=== PATIENT | male | born 1965 | race Hispanic/Latino ===

== ENCOUNTER 2018-01-17 06:54 | Emergency (ER) | payer SELFPAY ==
[~2018-01-17] VITALS: Ht 182.9 cm; Wt 81.8 kg
[2018-01-17 07:59] LABS: INFLUENZA A NONE DETECTED (NONE DETECT); INFLUENZA B NONE DETECTED (NONE DETECT)
[2018-01-17] MEDS ORDERED: AMOXICILLIN500 M2 PO (08:14)
[2018-01-17 08:16] VITALS: BP 121/7
== END 2018-01-17 08:22 | disposition home or self-care (01) | DRG 153 ==
LOC: ED 06:54
PROVIDERS: Family Medicine
DX: J02.0 Streptococcal pharyngitis (principal)

== ENCOUNTER 2018-08-31 09:37 | Emergency (ER) | payer OTHER ==
[~2018-08-31] VITALS: Ht 182.9 cm; Wt 95.0 kg
[~2018-08-31 09:37] MED LIST: AMOXICILLIN500 M2 PO
[2018-08-31 09:51] VITALS: BP 134/66
[2018-08-31] MEDS ORDERED: TORADOL PO (11:04)
== END 2018-08-31 11:17 | disposition home or self-care (01) | DRG 558 ==
LOC: ED 09:37
PROC: 2W39XYZ Immobilization of Left Upper Extremity using Other Device (ICD-10-PCS; principal; 2018-08-31)
DX: M75.92 Shoulder lesion, unspecified, left shoulder (principal)

== ENCOUNTER 2018-09-20 19:21 | Emergency (ER) | payer OTHER ==
[~2018-09-20] VITALS: Ht 182.9 cm; Wt 100.0 kg
[~2018-09-20 19:21] MED LIST changes: +TORADOL PO
[2018-09-20 20:13] LABS: URINE BILIRUBIN - DIPSTICK NEGATIVE (NEGATIVE); URINE BLOOD DIPSTICK NEGATIVE (NEGATIVE); URINE COLOR YELLOW; URINE GLUCOSE - DIPSTICK NEGATIVE (NEGATIVE); URINE KETONE TRACE mg/dL (NEGATIVE); URINE LEUK ESTERASE NEGATIVE (NEGATIVE); URINE NITRITE - DIPSTICK NEGATIVE (Negative); URINE PH 5.5 (4.5-8.0); URINE PROTEIN - DIPSTICK 30 mg/dL (NEG-TRACE); URINE SPECIFIC GRAVITY >=1.030; URINE UROBILINOGEN - DIPSTICK 0.2 E.U./dL (0.2)
[2018-09-20 20:17] LABS: URINE RBC 0-2 RBC/hpf (0-5)
[2018-09-20 20:22] LABS: HEMATOCRIT 47.9 % (39.0-50.0); IMMATURE GRANULOCYTES 0.7 % (0.0-5.0); MEAN CELL VOLUME 85.4 fL CALC (80.0-100.0); MEAN CORPUSCULAR HGB 28.7 pG CALC (26.0-32.0); MEAN CORPUSCULAR HGB CONC 33.6 g/L CALC (32.0-36.0); NEUT# 8.55 thou/uL (1.82-7.42); RED BLOOD COUNT 5.61 mill/uL (4.70-6.10); RED CELL DISTRI WIDTH 12.5 % (11.5-15.5)
[2018-09-20 20:24] LABS: HEMOGLOBIN 16.1 g/dl (14.0-18.0)
[2018-09-20 20:56] LABS: ALBUMIN 5.3 g/dL (3.2-5.0); BILIRUBIN, TOTAL 0.6 mg/dL (0.0-1.4); POTASSIUM 4.2 mmol/l (3.5-5.1); TOTAL PROTEIN 9.2 g/dL (6.3-8.2)
[2018-09-20 20:58] LABS: CREATININE 2.5 mg/dL (0.7-1.3)
[2018-09-20 23:37] LABS: IMMATURE GRANULOCYTES 0.5 % (0.0-5.0); MEAN CELL VOLUME 86.7 fL CALC (80.0-100.0); MEAN CORPUSCULAR HGB 28.6 pG CALC (26.0-32.0); MEAN CORPUSCULAR HGB CONC 32.9 g/L CALC (32.0-36.0); NEUT# 6.49 thou/uL (1.82-7.42); RED BLOOD COUNT 4.83 mill/uL (4.70-6.10); RED CELL DISTRI WIDTH 12.5 % (11.5-15.5)
[2018-09-20 23:48] LABS: BILIRUBIN, TOTAL 0.4 mg/dL (0.0-1.4); CREATININE 1.9 mg/dL (0.7-1.3); POTASSIUM 3.9 mmol/l (3.5-5.1)
[2018-09-20 23:50] LABS: ALBUMIN 3.9 g/dL (3.2-5.0); HEMATOCRIT 41.9 % (39.0-50.0); HEMOGLOBIN 13.8 g/dl (14.0-18.0)
[2018-09-21] VITALS: BP 117/67
== END 2018-09-21 00:10 | disposition home or self-care (01) | DRG 641 ==
LOC: ED 19:21
PROVIDERS: Emergency Medicine
DX: E86.0 Dehydration (principal); N28.9 Disorder of kidney and ureter, unspecified; R53.1 Weakness; R42 Dizziness and giddiness; R11.2 Nausea with vomiting, unspecified; M79.10 Myalgia, unspecified site; R50.9 Fever, unspecified; Y92.89 Other specified places as the place of occurrence of the external cause; Y99.0 Civilian activity done for income or pay

== ENCOUNTER 2022-04-10 12:47 | Emergency (ER) | payer SELFPAY ==
[~2022-04-10] VITALS: Ht 182.9 cm; Wt 81.0 kg
[2022-04-10] MEDS ORDERED: BACTRIM DS1 TAB PO (14:48)
[2022-04-10] MEDS ORDERED: KEFLEX500 MG PO (14:48)
[2022-04-10 14:56] VITALS: BP 134/86
== END 2022-04-10 15:08 | disposition home or self-care (01) | DRG 603 ==
LOC: ED 12:47
PROC: 0H9NXZZ Drainage of Left Foot Skin, External Approach (ICD-10-PCS; principal; 2022-04-10)
DX: L02.612 Cutaneous abscess of left foot (principal)

== ENCOUNTER 2022-07-10 15:30 | Emergency (ER) | payer OTHER ==
[2022-07-10] VITALS (10 sets, daily range): BP systolic 130–144; BP diastolic 73–90
[~2022-07-10] VITALS: Ht 182.9 cm; Wt 80.9 kg
[~2022-07-10 15:30] MED LIST changes: +BACTRIM DS1 TAB PO; +KEFLEX500 MG PO
[2022-07-10] MEDS ORDERED: FLEXERIL5 M1 PO (18:11)
[2022-07-10] MEDS ORDERED: DECADRON4 MG PO (18:11)
== END 2022-07-10 18:22 | disposition home or self-care (01) | DRG 552 ==
LOC: ED 15:30
DX: M54.50 Low back pain, unspecified (principal); M25.511 Pain in right shoulder; M25.552 Pain in left hip